=== PATIENT | male | born 1935 | race Hispanic/Latino ===

== ENCOUNTER 2018-01-30 06:57 | Day surgery (SDC) | payer MEDICARE ==
[2018-01-30] MEDS ORDERED: NACL 0.9% 500 ML 500 ML ONE (07:24)
[2018-01-30] MEDS ORDERED: NACL 0.9% 500 ML 500 ML IV SCH (08:00)
[2018-01-30 08:09] LABS: Basophils % (Auto) 0.5 % (0.0-1.8); Eosinophils # (Auto) 0.2 K/mm3 (0.0-0.4); Eosinophils % (Auto) 3.8 % (0.0-4.3); Hematocrit 43.2 % (35.5-45.6); Hemoglobin 14.8 gm/dl (11.8-15.2); Lymphocytes # (Auto) 1.4 K/mm3 (1.2-5.4); Lymphocytes % (Auto) 25.4 % (13.4-35.0); Mean Corpuscular HGB Conc 34 % (32-34); Mean Corpuscular Hemoglobin 32 pg (28-32); Mean Corpuscular Volume 92 fl (84-94); Monocytes # (Auto) 0.7 K/mm3 (0.0-0.8); Monocytes % (Auto) 12.2 % (0.0-7.3); Platelet Count 200 K/mm3 (140-440); Red Blood Count 4.68 M/mm3 (3.65-5.03); Red Cell Distribution Width 13.7 % (13.2-15.2)
[2018-01-30 08:14] LABS: INR 0.95 (0.87-1.13)
[2018-01-30 08:15] LABS: BUN/Creatinine Ratio 22; Blood Urea Nitrogen 20 mg/dL (9-20); Calcium 9.2 mg/dL (8.4-10.2); Hemolysis Index 5; Partial Thromboplastin Time 27.9 Sec. (24.2-36.6)
[2018-01-30] MEDS ORDERED: HEPARIN/NS 5000 UNIT/500ML(CATH LAB) 1,000 ML IR ONE (10:31)
[2018-01-30] MEDS ORDERED: CALAN ONE (10:32)
[2018-01-30] MEDS ORDERED: NITROGLYCERIN SYRINGE 3 ML ONE (10:32)
[2018-01-30] MEDS ORDERED: VERSED ONE (10:32)
[2018-01-30] MEDS ORDERED: XYLOCAINE 2% INFILTRATI ONE (10:32)
[2018-01-30] MEDS ORDERED: HEPARIN 10,000 UNITS/10 ML ONE (10:32)
[2018-01-30] MEDS ORDERED: SUBLIMAZE ONE (10:32)
--- NOTE | 2018-01-30 11:34 | Discharge Summary ---
Short Stay Discharge Plan Activity: advance as tolerated Weight Bearing Status: Full Weight Bearing Diet: low fat, low cholesterol, low salt Wound: keep clean and dry Special Instructions: no heavy lifting (3 days) Follow up with: MIKE DELACRUZ MD [Primary Care Provider] - 7 Days YOGESH LOWERY MD [Staff Physician] - 7 Days
--- NOTE | 2018-01-30 11:39 | Cardiac Catherization Report ---
CARDIAC CATHETERIZATION REPORT REASON FOR PROCEDURE: Abnormal thallium stress test. PROCEDURES: 1. Left heart catheterization. 2. Selective left and right coronary angiography. 3. Left ventricular angiography. 4. Sedations time from 10:59-11:20. DESCRIPTION OF PROCEDURE: The patient was prepped and draped in a sterile fashion after informed consent. The right radial cath site was prepped and draped after a negative Anthony's test. The right radial artery was entered using Seldinger technique followed by placement of a 6-Thai hydrophilic sheath. Routine radial cocktail was administered via the sheath. A #3.5 left Ghazala catheter was used for left coronary angiography. A #4 right Ghazala was used for right coronary angiography. The right Ghazala catheter was used for left ventricle angiography. The catheters were removed, sheath removed, and hemostasis achieved using manual compression. The patient was returned to the post-procedure unit in stable condition. There were no complications. FINDINGS: HEMODYNAMICS: Left ventricle end diastolic pressure was 8. Ascending aortic pressure was 128/60. There was no significant pressure gradient on pullback across the aortic valve. CORONARY ANGIOGRAPHY: The left main coronary artery was angiographically normal. The left anterior descending artery contained a 30-50% stenosis of its mid segment. Otherwise, the rest of this vessel and its diagonal branches contained mild luminal irregularities. The circumflex artery was a large, dominant system that contained mild luminal irregularities. The right coronary artery was a small, nondominant, and free of significant disease. Left ventricular systolic function was at lower limits of normal with estimated ejection fraction of 50%. CONCLUSION: 1. Mild nonobstructive mid LAD disease as above, otherwise essentially angiographically normal coronary arteries. 2. Left circumflex dominant system. 3. Left ventricular systolic function at the lower limits of normal, ejection fraction 50%. RECOMMENDATION: Risk factor modification and medical therapy. JOB# [id number] CA/NTS
[2018-01-30] MEDS ORDERED: NACL 0.9% 1000 ML 1,000 ML IV SCH (12:00)
[2018-01-30 14:30] VITALS: BP 143/72
== END 2018-01-30 14:45 | disposition home or self-care (01) ==
LOC: CATHLABREC 06:57
PROVIDERS: ATTEND Internal Medicine Cardiovascular Disease
DX: I25.10 Atherosclerotic heart disease of native coronary artery without angina pectoris (principal); M19.90 Unspecified osteoarthritis, unspecified site; E78.5 Hyperlipidemia, unspecified; Z79.899 Other long term (current) drug therapy; Z79.82 Long term (current) use of aspirin; Z79.01 Long term (current) use of anticoagulants; Z86.73 Personal history of transient ischemic attack (TIA), and cerebral infarction without residual deficits; Z98.890 Other specified postprocedural states
CPT/HCPCS: 36415; 80048; 85025; 85610; 85730; 93005; 93010; 93458; 99156; 99157; C1894; J1644; J2250; J3010; J7040; Q9967